=== PATIENT | female | born 1945 | race African-American/Black ===

== ENCOUNTER 2016-03-27 13:33 | Emergency (ER) | payer MEDICARE ==
--- NOTE | 2016-03-27 14:40 | PICIS ---
[facility] EMERGENCY RECORD TRIAGE (13:41 ASA) TRIAGE NOTES: c/o cough, congestion and fever x one week. (13:41 ASAH) PATIENT: NAME: Holly Faith, AGE: 70, GENDER: female, : Sat 1945, TIME OF GREET: Cassandra Mar 27, 2016 13:33, PREFERRED LANGUAGE: Hungarian, ETHNICITY: Not or , ECODE BILLING MAP: [facility], SSN: [id number], Zip Code: [address], KG WEIGHT: 88.45, PHONE: , , , PERSON ID: [id number], PAYMENT: X Medicare, PCP: DO BANEGAS KRISTEL. (13:41 ASAH) COMPLAINT: congestion. (13:41 ASAH) ADMISSION: URGENCY: 4 Non Urgent, ADMISSION SOURCE: Home, TRANSPORT: CAR, BED: ER -03. (13:41 ASAH) SIRS SCORING: Heart Rate 55-109 (0), Temp range 96.8-101.1 (0), respiratory rate 12-24 (0), Mental Status altered: no (0), Infection or Suspected Infection: No. (13:42 ASAH) TRIAGE SCREENING: Patient denies suicidal ideation, Patient denies presence of domestic violence. (13:42 ASAH) PROVIDERS: TRIAGE NURSE: Azucena Redman RN. (13:41 ASAH) VITAL SIGNS: BP 138/79, Pulse 83, Resp 18, Temp 98.4, (Oral), Pain 0, O2 Sat 96, Time 03/27/2016 13:40. (13:40 ASAH) PREVIOUS VISIT ALLERGIES: No Known Drug Allergies. (13:41 ASAH) No Known Drug Allergies. (13:42 ASAH) KNOWN ALLERGIES aspirin (Unconfirmed) No Known Allergies (Unconfirmed) No Known Drug Allergies CURRENT MEDICATIONS (13:42 ASAH) hydrochlorothiazide: TABLET : Strength - 25 mg : ORAL Patient Dose: 1 tab(s) Oral once a day. Medrol (Oscar): TABLET, DOSE PACK : Strength - 4 mg : ORAL Patient Dose: 1 tab(s) Oral once a day (in the morning).taper as directed once a day for 5 days. VITAL SIGNS (13:40 [facility]) VITAL SIGNS: BP: 138/79, Pulse: 83, Resp: 18, Temp: 98.4 (Oral), Pain: 0, O2 sat: 96, Time: 03/27/2016 13:40. NURSING ASSESSMENT: RESPIRATORY /CHEST (13:53 ASA) CONSTITUTIONAL: Patient arrives ambulatory, Gait steady, History obtained from patient, Patient appears comfortable, Patient cooperative, Patient alert, Oriented to person, place and time, Skin warm, Skin dry, Skin normal in color, Patient complains of congestion. RESPIRATORY/CHEST: Breath sounds clear, Respiratory assessment findings include respiratory effort easy, Respirations regular, &a-1R&a+25V*p+0X*b7205O*c202B*c15G*c2P*p-0X&a-25V&a+1R Name: Holly Faith : 1945 F70 MedRec: [id number] AcctNum: [id number] Prepared: [facility] Mar 27, 2016 17:13 by Interface Page 1 of 5 pMD [facility] EMERGENCY RECORD Conversing normally, Neck and chest exam findings include trachea midline, Chest expansion equal, Chest movement symmetrical, Associated with cough, non-productive. ENT: Nasal assessment findings include nose normal to inspection. SAFETY: Side rails up, Cart/Stretcher in lowest position, Call light within reach, Hospital ID band on. NURSING PROCEDURE: DISCHARGE NOTE (14:33 ASA) DISCHARGE: Patient discharged to home, ambulating without assistance, driving self, unaccompanied, Summary of Care printed/ provided, Discharge instructions given to patient, Simple or moderate discharge teaching performed, by azucenarn, Prescriptions given and instructions on side effects given, Name of prescription(s) given: zithromax, tessalon, Above person(s) verbalized understanding of discharge instructions and follow-up care. SAFETY: Side rails up, Cart/Stretcher in lowest position, Call light within reach, Hospital ID band on. NURSING PROCEDURE: ENT (13:53 ASA) PATIENT IDENTIFIER: Patient actively involved in identification process. ENT: ENT care indicated for specimen collection, Notes: nasal flu swab collected and sent to lab. SAFETY: Side rails up, Cart/Stretcher in lowest position, Call light within reach, Hospital ID band on. ORDER DETAILS Order Name: Influenza A&B Ag Screen, Status: Active, Time: 13:55 03/27/2016, User: VeliQ, - Ordered for: DO Melvin William, - Entered by: DO Melvin William - [facility] Mar 27, 2016 13:55, - Quantity: 1. HPI FLU-LIKE SYNDROME (13:51 [facility]) CHIEF COMPLAINT: Patient presents for evaluation of body aches, Patient presents for evaluation of fever, Patient presents for evaluation of upper respiratory infection. HISTORIAN: History provided by patient, STARTED 1 WK AGO NO FEVER CURRENTLY STILL CONGESTED SINUS PRESSURE. LOCATION: Symptoms are generalized. TIME COURSE: Gradual onset of symptoms, 1, weeks ago. ASSOCIATED WITH: Associated with cough, non-productive, No associated headache, No associated shortness of breath. EXACERBATED BY: Patient's condition exacerbated by nothing. RELIEVED BY: Patient's condition relieved by nothing. ROS (13:53 [facility]) CONSTITUTIONAL: Historian denies chills, denies fever. &a-1R&a+25V*p+0X*n0451Z*c202B*c15G*c2P*p-0X&a-25V&a+1R Name: Holly Faith : 1945 F70 MedRec: [id number] AcctNum: [id number] Prepared: [facility] Mar 27, 2016 17:13 by Interface Page 2 of 5 pMD [facility] EMERGENCY RECORD EYES: Historian denies eye pain, denies eye discharge. ENT: Historian denies otalgia, reports rhinorrhea, reports sinus pain. CARDIOVASCULAR: Historian denies chest pain, no radiation. RESPIRATORY: Historian reports cough, denies shortness of breath, denies sputum. GI: Historian denies abdominal pain, denies nausea, denies vomiting. GENITOURINARY FEMALE: Historian denies frequency, denies urgency. MUSCULOSKELETAL: Historian denies joint stiffness, denies joint swelling. SKIN: Historian denies skin changes, denies skin lesions. NEUROLOGIC: Historian denies focal weakness, denies mental status changes. PSYCHIATRIC: Historian denies alcohol abuse, denies anxiety, denies depression, denies drug abuse. PAST MEDICAL HISTORY (13:42 [facility]) MEDICAL HISTORY: Flu vaccine up to date, Tetanus not up to date, Pneumococcal vaccine not up to date, Flu vaccine up to date, Tetanus not up to date, Pneumococcal vaccine up to date, Past medical history includes history of hypertension, which has been treated, Patient is compliant. FEMALE SURGICAL HISTORY: COLON CYST, PARTIAL HYSTERECTOMY. PSYCHIATRIC HISTORY: Psychiatric history includes, anxiety. SOCIAL HISTORY: Patient denies alcohol use, Patient denies drug use, Patient currently uses tobacco, chews tobacco, daily. PHYSICAL EXAM (13:54 [facility]) CONSTITUTIONAL: Vital signs reviewed, Patient appears non toxic, Patient appears pain free, Patient alert and oriented to person, place and time. HEAD: Head exam included findings of head atraumatic, normocephalic. EYES: Extraocular muscles intact, Conjunctiva normal, Sclera normal. ENT: Ear exam normal, Nose exam included findings of, Pharynx exam normal, not injected, Sinus exam included findings of frontal sinuses with, tenderness bilaterally. NECK: Neck exam included findings of normal range of motion, Trachea midline. RESPIRATORY CHEST: Breath sounds clear, Chest exam included findings of chest movement symmetrical. CARDIOVASCULAR: Cardiovascular exam included findings of heart rate regular rate and rhythm, Heart sounds normal. ABDOMEN FEMALE: Abdominal exam included findings of abdomen nontender, Liver normal, Spleen normal. UPPER EXTREMITY: Upper extremity exam included findings of &a-1R&a+25V*p+0X*s0298E*c202B*c15G*c2P*p-0X&a-25V&a+1R Name: Holly Faith : 1945 F70 MedRec: [id number] AcctNum: [id number] Prepared: Cassandra Mar 27, 2016 17:13 by Interface Page 3 of 5 pMD [facility] EMERGENCY RECORD inspection normal, Range of motion normal, Motor strength normal. LOWER EXTREMITY: Lower extremity exam included findings of inspection normal, Range of motion normal, Motor strength normal. NEURO: [place] coma scale 15, Neuro exam findings include patient oriented to person, place and time, Speech normal, Gait normal. SKIN: Skin exam included findings of skin warm, dry, and normal in color. LYMPHATIC: Lymphatic exam normal. PSYCHIATRIC: Psychiatric exam included findings of patient oriented to person place and time, Normal affect, Judgment normal, Insight normal. LAB INTERPRETATION (14:27 [facility]) INTERPRETATION: Influenza negative. EVENTS TRANSFER: Triage to Emergency Emergency Room -03. (Cassandra Mar 27, 2016 13:41 ASAH) Removed from Emergency Emergency Room -03. (14:36 ASAH) PROBLEM LIST No recorded problems DIAGNOSIS (14:29 [facility]) FINAL: PRIMARY: ACUTE SINUSITIS UNSPECIFIED. DISPOSITION PATIENT: Disposition Type: Discharge, Disposition: *Discharge Home. (14:29 [facility]) Patient left the department. (14:36 ASA) INSTRUCTION (14:29 [facility]) DISCHARGE: SINUSITIS, ABX TX. FOLLOWUP: DO BANEGAS KRISTEL, [facility], [address] [place] [id number], [phone]. SPECIAL: Follow-up with your primary physician as needed. PRESCRIPTION (14:29 [facility]) Tessalon: CAPSULE : 200 mg : ORAL : Quantity: 1 Unit: tab(s) Route: ORAL Schedule: every 8 hours PRN Dispense: 21 Unit: tab(s) May substitute. Refills: No Refills . NOTES: No refills. Zithromax oral: CAPSULE : 250 mg : ORAL : Quantity: 1 Unit: tab(s) Route: ORAL Schedule: once a day (in the morning) Dispense: 6 Unit: tab(s) May substitute. Refills: No Refills . NOTES: ^s=No refills No refills. &a-1R&a+25V*p+0X*f2840I*c202B*c15G*c2P*p-0X&a-25V&a+1R Name: Marcell Holly Jeison : 1945 F70 MedRec: [id number] AcctNum: [id number] Prepared: ThuMar 27, 2016 17:13 by Interface Page 4 of 5 pMD [facility] EMERGENCY RECORD IMAGING (14:35 ASA) *DISCHARGE INSTRUCTIONS RECEIPT: Image captured from scanner. *SUPPLY CHARGE SHEET: Image captured from scanner. ADMIN DIGITAL SIGNATURE: VIRGINIA Redman, June. (14:34 ASA) DO Melvin William. (17:05 [facility]) Fernandez: ASA=VIR[place] Redman, June [facility]=DO Melvin William &a-1R&a+25V*p+0X*b7999F*c202B*c15G*c2P*p-0X&a-25V&a+1R Name: Holly Faith : 1945 F70 MedRec: [id number] AcctNum: [id number] Prepared: Cassandra Mar 27, 2016 17:13 by Interface Page 5 of 5 pMD MTDD
--- NOTE | 2016-03-27 14:40 | ERRECORD ---
[facility] EMERGENCY RECORD HPI FLU-LIKE SYNDROME (13:51 [facility]) CHIEF COMPLAINT: Patient presents for evaluation of body aches, Patient presents for evaluation of fever, Patient presents for evaluation of upper respiratory infection. HISTORIAN: History provided by patient, STARTED 1 WK AGO NO FEVER CURRENTLY STILL CONGESTED SINUS PRESSURE. LOCATION: Symptoms are generalized. TIME COURSE: Gradual onset of symptoms, 1, weeks ago. ASSOCIATED WITH: Associated with cough, non-productive, No associated headache, No associated shortness of breath. EXACERBATED BY: Patient's condition exacerbated by nothing. RELIEVED BY: Patient's condition relieved by nothing. ROS (13:53 [facility]) CONSTITUTIONAL: Historian denies chills, denies fever. EYES: Historian denies eye pain, denies eye discharge. ENT: Historian denies otalgia, reports rhinorrhea, reports sinus pain. CARDIOVASCULAR: Historian denies chest pain, no radiation. RESPIRATORY: Historian reports cough, denies shortness of breath, denies sputum. GI: Historian denies abdominal pain, denies nausea, denies vomiting. GENITOURINARY FEMALE: Historian denies frequency, denies urgency. MUSCULOSKELETAL: Historian denies joint stiffness, denies joint swelling. SKIN: Historian denies skin changes, denies skin lesions. NEUROLOGIC: Historian denies focal weakness, denies mental status changes. PSYCHIATRIC: Historian denies alcohol abuse, denies anxiety, denies depression, denies drug abuse. PAST MEDICAL HISTORY (13:42 ASA) MEDICAL HISTORY: Flu vaccine up to date, Tetanus not up to date, Pneumococcal vaccine not up to date, Flu vaccine up to date, Tetanus not up to date, Pneumococcal vaccine up to date, Past medical history includes history of hypertension, which has been treated, Patient is compliant. FEMALE SURGICAL HISTORY: COLON CYST, PARTIAL HYSTERECTOMY. PSYCHIATRIC HISTORY: Psychiatric history includes, anxiety. SOCIAL HISTORY: Patient denies alcohol use, Patient denies drug use, Patient currently uses tobacco, chews tobacco, daily. KNOWN ALLERGIES aspirin (Unconfirmed) No Known Allergies (Unconfirmed) No Known Drug Allergies &a-1R&a+25V*p+0X*k0848I*c202B*c15G*c2P*p-0X&a-25V&a+1R Name: Holly Faith : 1945 F70 MedRec: [id number] AcctNum: [id number] Prepared: Cassandra Mar 27, 2016 17:07 by Interface Page [address] [facility] EMERGENCY RECORD CURRENT MEDICATIONS (13:42 ASAH) hydrochlorothiazide: TABLET : Strength - 25 mg : ORAL Patient Dose: 1 tab(s) Oral once a day. Medrol (Oscar): TABLET, DOSE PACK : Strength - 4 mg : ORAL Patient Dose: 1 tab(s) Oral once a day (in the morning).taper as directed once a day for 5 days. VITAL SIGNS (13:40 ASAH) VITAL SIGNS: BP: 138/79, Pulse: 83, Resp: 18, Temp: 98.4 (Oral), Pain: 0, O2 sat: 96, Time: 03/27/2016 13:40. PHYSICAL EXAM (13:54 [facility]) CONSTITUTIONAL: Vital signs reviewed, Patient appears non toxic, Patient appears pain free, Patient alert and oriented to person, place and time. HEAD: Head exam included findings of head atraumatic, normocephalic. EYES: Extraocular muscles intact, Conjunctiva normal, Sclera normal. ENT: Ear exam normal, Nose exam included findings of, Pharynx exam normal, not injected, Sinus exam included findings of frontal sinuses with, tenderness bilaterally. NECK: Neck exam included findings of normal range of motion, Trachea midline. RESPIRATORY CHEST: Breath sounds clear, Chest exam included findings of chest movement symmetrical. CARDIOVASCULAR: Cardiovascular exam included findings of heart rate regular rate and rhythm, Heart sounds normal. ABDOMEN FEMALE: Abdominal exam included findings of abdomen nontender, Liver normal, Spleen normal. UPPER EXTREMITY: Upper extremity exam included findings of inspection normal, Range of motion normal, Motor strength normal. LOWER EXTREMITY: Lower extremity exam included findings of inspection normal, Range of motion normal, Motor strength normal. NEURO: [place] coma scale 15, Neuro exam findings include patient oriented to person, place and time, Speech normal, Gait normal. SKIN: Skin exam included findings of skin warm, dry, and normal in color. LYMPHATIC: Lymphatic exam normal. PSYCHIATRIC: Psychiatric exam included findings of patient oriented to person place and time, Normal affect, Judgment normal, Insight normal. PROBLEM LIST No recorded problems DIAGNOSIS (14:29 [facility]) &a-1R&a+25V*p+0X*b0447X*c202B*c15G*c2P*p-0X&a-25V&a+1R Name: Holly Faith : 1945 F70 MedRec: [id number] AcctNum: [id number] Prepared: ThuMar 27, 2016 17:07 by Interface Page [address] [facility] EMERGENCY RECORD FINAL: PRIMARY: ACUTE SINUSITIS UNSPECIFIED. PRESCRIPTION (14:29 [facility]) Tessalon: CAPSULE : 200 mg : ORAL : Quantity: 1 Unit: tab(s) Route: ORAL Schedule: every 8 hours PRN Dispense: 21 Unit: tab(s) May substitute. Refills: No Refills . NOTES: No refills. Zithromax oral: CAPSULE : 250 mg : ORAL : Quantity: 1 Unit: tab(s) Route: ORAL Schedule: once a day (in the morning) Dispense: 6 Unit: tab(s) May substitute. Refills: No Refills . NOTES: ^s=No refills No refills. DISPOSITION PATIENT: Disposition Type: Discharge, Disposition: *Discharge Home. (14:29 [facility]) Patient left the department. (14:36 [facility]) Fernandez: BALA=VIRGINIA Redman, June WMEI=DO Melvin William &a-1R&a+25V*p+0X*m4744Y*c202B*c15G*c2P*p-0X&a-25V&a+1R Name: Holly Faith : 1945 F70 MedRec: [id number] AcctNum: [id number] Prepared: ThuMar 27, 2016 17:07 by Interface Page 3 of 3 pMD MTDD
== END 2016-03-27 14:32 | disposition home or self-care (01) ==
LOC: BURERS 13:33
DX: J01.90 Acute sinusitis, unspecified (principal); F41.9 Anxiety disorder, unspecified; F17.220 Nicotine dependence, chewing tobacco, uncomplicated
CPT/HCPCS: 99283

== ENCOUNTER 2016-08-04 09:45 | Emergency (ER) | payer MEDICARE | END 2016-08-04 10:12 | disposition home or self-care (01) | LOC: BURERS 09:45 | DX: S29.012A Strain of muscle and tendon of back wall of thorax, initial encounter (principal); I10 Essential (primary) hypertension; F17.220 Nicotine dependence, chewing tobacco, uncomplicated; Z79.891 Long term (current) use of opiate analgesic; Z79.899 Other long term (current) drug therapy; X50.9XXA Other and unspecified overexertion or strenuous movements or postures, initial encounter | CPT/HCPCS: 99283 ==

== ENCOUNTER 2016-12-04 08:20 | Emergency (ER) | payer MEDICARE | END 2016-12-04 09:00 | disposition home or self-care (01) | LOC: BURERS 08:20 | DX: M25.562 Pain in left knee (principal); G89.29 Other chronic pain; I10 Essential (primary) hypertension; F17.220 Nicotine dependence, chewing tobacco, uncomplicated | CPT/HCPCS: 99283 ==

== ENCOUNTER 2017-03-16 14:17 | Emergency (ER) | payer MEDICARE | END 2017-03-16 15:16 | disposition home or self-care (01) | LOC: BURERS 14:17 | DX: Z43.3 Encounter for attention to colostomy (principal); T81.32XD Disruption of internal operation (surgical) wound, not elsewhere classified, subsequent encounter; I10 Essential (primary) hypertension; F17.220 Nicotine dependence, chewing tobacco, uncomplicated; Z79.899 Other long term (current) drug therapy | CPT/HCPCS: 99282 ==

== ENCOUNTER 2017-03-29 05:03 | Emergency (ER) | payer MEDICARE ==
[2017-03-29 05:34] LABS: Bilirubin Negative (Negative); Blood, Urine Trace (Negative); Clarity Clear (Clear); Glucose, Urine (Dipstick) Negative (Negative); Leukocyte Trace (Negative); Nitrite Negative (Negative); Protein, Urine (Dipstick) Negative (Neg-Trace); Specific Gravity, Urine 1.015 (1.005-1.030); Urobilinogen 0.2 mg/dL (0.2-1.0); pH, Urine 7.5 (5.0-9.0)
[2017-03-29 05:36] LABS: Bacteria/HPF Rare-Few HPF (None Seen); RBC/HPF 0-3 HPF (0-3); Squamous Epithelial 0-3 HPF (0-3); WBC/HPF 0-3 HPF (0-3); Yeast-All Forms 1+ HPF (None Seen)
[2017-03-29] MEDS ORDERED: Ondansetron HCl/PF 4 MG/2 ML Vial ONE (05:59)
[2017-03-29] MEDS ORDERED: Fentanyl 100 MCG/2 ML VIAL ONE ×2 (05:59→07:58)
[2017-03-29 06:19] LABS: ALT (SGPT) 9 U/L (8-55); AST (SGOT) 15 U/L (5-34); Albumin 3.3 g/dL (3.4-4.8); Alkaline Phosphatase 39 U/L (40-150); Anion Gap 15 mmol/L (10-20); BUN (Urea Nitrogen) 4 mg/dL (9.8-20.1); Bilirubin, Total 0.3 mg/dL (0.2-1.2); Calc. Creatinine Clearance 0 mL/min (70-130); Calcium 8.9 mg/dL (7.8-10.44); Carbon Dioxide 25 mmol/L (23-31); Chloride 103 mmol/L (98-107); Estimated GFR-MDRD Greater than 90; Globulin 4.1 g/dL (2.4-3.5); Glucose 118 mg/dL (83-110); Lipase 7 U/L (8-78); Potassium 3.4 mmol/L (3.5-5.1); Protein, Total 7.4 g/dL (6.0-8.3); Sodium 140 mmol/L (136-145)
[2017-03-29 06:22] LABS: #Basophils 0.1 thou/uL (0.0-0.2); #Eosinphils 0.1 thou/uL (0.0-0.7); #Lymphocytes 1.8 thou/uL (1.20-3.40); #Monocytes 0.6 thou/uL (0.11-0.59); #Neutrophils 5.2 thou/uL (1.40-6.50); %Basophils 1.3 % (0.0-1.0); %Eosinophils 0.7 % (0.0-10.0); %Lymphocytes 23.1 % (21.0-51.0); %Monocytes 7.2 % (0.0-10.0); %Neutrophils 67.7 % (42.0-75.0); Hemoglobin 10.3 g/dL (12.0-16.0); Lymphocytes 22 % (21-51); MDiff Complete? YES; Mean Corpuscular HGB CONC 32.2 g/dL (32.0-36.0); Mean Corpuscular Hemoglobin 26.9 pg (27.0-31.0); Mean Corpuscular Volume 83.7 fl (81.0-99.0); Mean Platelet Volume 5.6 fL (7.4-10.4); Monocytes 11 % (0-10); Neutrophil 67 % (42-75); PLT Morphology Comment Appears Adequate; Platelet Count 383 thou/uL (130-400); RBC Distribution Width 12.9 % (11.5-14.5); RBC Morphology Normal; Red Blood Cell (RBC) Count 3.84 mill/uL (4.20-5.40); Small Platelets SLIGHT; White Blood Cell (WBC) Count 7.7 thou/uL (4.8-10.8)
[2017-03-29] MEDS ORDERED: Dicyclomine 20 MG TAB ONE (07:58)
--- NOTE | 2017-03-29 13:38 | CT ---
PRELIMINARY REPORT/[facility]/EMERGENCY AFTER HOURS PROCEDURE: EXAM: CT Abdomen and Pelvis With Intravenous Contrast CLINICAL HISTORY: 71 years female; Pain; Abdominal pain; Flank; Left lower quadrant (llq); Prior surgery; Surgery date: <1 month; Surgery type: Sbo SX with colostomy TECHNIQUE: Axial computed tomography images of the abdomen and pelvis with intravenous contrast. Coronal reformatted images were created and reviewed. COMPARISON: No relevant prior studies available. FINDINGS: Lower thorax: Scarring or subsegmental atelectasis both lung bases. ABDOMEN: Liver: Unremarkable. No mass. Gallbladder and bile ducts: Unremarkable. No calcified stones. No ductal dilation. Pancreas: Unremarkable. No mass. No ductal dilation. Spleen: Unremarkable. No splenomegaly. Adrenals: Unremarkable. No mass. Kidneys and ureters: Multiple right renal cortical cysts include a dominant partially calcified super ior pole cyst. Mild to moderate left hydronephrosis and left hydroureter. No discrete obstructing ur inary calculus bilaterally. Mild left perinephric and left periureteral stranding. Stomach and bowel: Left lower quadrant colostomy. Gas and stool noted in the colon. Nonobstructive small bowel pattern. No mucosal thickening. Appendix: No findings to suggest acute appendicitis. PELVIS: Bladder: Unremarkable. No mass. Reproductive: Unremarkable as visualized. Subperitoneal space: Ill-defined presacral and perirectal soft tissue thickening. ABDOMEN and PELVIS: Intraperitoneal space: Trace pelvic free fluid. No free air. Bones/joints: Degenerative change of the lumbar spine. No acute fracture. No dislocation. Soft tissues: Multiple ventral periumbilical hernias, largest is fluid-filled measuring 4.8 x 2.9 cm transverse. Mild generalized abdominal and pelvic body wall edema. Vasculature: Aortic atherosclerosis. No abdominal aortic aneurysm. Lymph nodes: Unremarkable. No enlarged lymph nodes. IMPRESSION: Mild to moderate left obstructive uropathy. Etiology uncertain. Distal left ureteral stricture not ex cluded. Additionally there may be superimposed left-sided pyelonephritis. Ill-defined presacral and perirectal soft tissue thickening. This is indeterminate for post treatment effect versus residual or recurrent tumor, if there is history of colorectal carcinoma. Followup can be performed with PET CT scan as directed clinically. Uncomplicated appearing ventral hernias. Left lower quadrant colostomy without overt small bowel obstruction. Mild generalized abdominal and pelvic body wall edema. Thank you for allowing us to participate in the care of your patient. Dictated and Authenticated by: Alphonso Wright MD 03/29/2017 7:34 AM Central Time ([place] & [place]) FINAL REPORT CT ABDOMEN AND PELVIS WITH CONTRAST: Date: 03/29/[address] of the abdomen and pelvis was performed for evaluation of pain. The patient is recently pos t colostomy. Axial slices were acquired without giving any oral contrast. IV contrast was used. FINDINGS: There is some scarring or linear atelectasis in the left lung base. Otherwise, the lungs are relative ly clear. Some coronary artery calcifications are suggested. The liver, spleen, pancreas, and adrenal glands are unremarkable. There are probably a few tiny stone s in the gallbladder. The aorta is calcified but not dilated. There is moderate left hydronephrosis and hydroureter down to at least the pelvic level. The cause fo r this obstruction is not apparent. I cannot see any definite ureteral calculi. The right kidney has several calcifications within it. There may be a calcified node outside of it. There is no obstructio n on this side. The patient's left lower quadrant colostomy is noted. There is generalized edema or swelling in the a nterior body wall of this patient. A trace of free fluid is seen internally, but no large amount. The bowel is nondistended. There is no evidence of bowel obstruction. CT of the pelvis shows some poorly defined streaking in the presacral and perirectal regions. The sig nificance is unknown. No pelvic masses are seen. Also, incidentally noted on the study, are several small periumbilical hernias, which are fluid-fille d, but do not contain any obvious bowel within them. IMPRESSION: 1. Left hydronephrosis and hydroureter down to at least the pelvic level. The cause for the obstruct ion is not apparent on this study. Urological referral recommended. 2. Areas of swelling or edema in the anterior abdominal wall fat presumably related to the recent co lostomy. 3. Ill-defined streaking in the presacral/perirectal fat that may be related to recent surgery. 4. Right renal calcifications. 5. Tiny gallstones. Report in agreement with preliminary reading by Nadir. POS: HOME
== END 2017-03-29 08:40 | disposition home or self-care (01) ==
LOC: BURERS 05:03
DX: N13.30 Unspecified hydronephrosis (principal); D64.9 Anemia, unspecified; I10 Essential (primary) hypertension; F17.220 Nicotine dependence, chewing tobacco, uncomplicated; Z79.899 Other long term (current) drug therapy
CPT/HCPCS: 74177; 80053; 81003; 81015; 83690; 85025; 87086; 96361; 96374; 96375; 96376; J2405; J3010

== ENCOUNTER 2018-08-21 17:12 | Emergency (ER) | payer MEDICARE, MEDICAID, OTHER ==
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
== END 2018-08-21 18:35 | disposition home or self-care (01) ==
LOC: BURERS 17:12
DX: S80.01XA Contusion of right knee, initial encounter (principal); S80.02XA Contusion of left knee, initial encounter; F17.220 Nicotine dependence, chewing tobacco, uncomplicated; V43.52XA Car driver injured in collision with other type car in traffic accident, initial encounter

== ENCOUNTER 2018-10-11 10:27 | Emergency (ER) | payer MEDICARE, MEDICAID | END 2018-10-11 11:55 | disposition home or self-care (01) | LOC: BURERS 10:27 | DX: B00.1 Herpesviral vesicular dermatitis (principal); K21.9 Gastro-esophageal reflux disease without esophagitis; E78.5 Hyperlipidemia, unspecified; I10 Essential (primary) hypertension; Z87.891 Personal history of nicotine dependence; Z79.899 Other long term (current) drug therapy | CPT/HCPCS: 36416; 87529; 99283 ==

== ENCOUNTER 2019-01-03 14:38 | Emergency (ER) | payer MEDICARE, MEDICAID | END 2019-01-03 15:15 | disposition home or self-care (01) | LOC: BURERS 14:38 | DX: L30.9 Dermatitis, unspecified (principal); K21.9 Gastro-esophageal reflux disease without esophagitis; E78.5 Hyperlipidemia, unspecified; I10 Essential (primary) hypertension; F17.220 Nicotine dependence, chewing tobacco, uncomplicated; Z79.891 Long term (current) use of opiate analgesic; Z79.899 Other long term (current) drug therapy | CPT/HCPCS: 99282 ==

== ENCOUNTER 2019-04-30 11:26 | Emergency (ER) | payer MEDICARE, MEDICAID ==
[2019-04-30] MEDS ORDERED: Sulfameth/Trimethoprim DS 800-160mg TAB ONE (11:48)
[2019-04-30] MEDS ORDERED: Phenazopyridine HCl 97.5 MG TABLET ONE (11:48)
[2019-04-30 11:54] LABS: Bilirubin Negative (Negative); Blood, Urine Large (Negative); Clarity Turbid (Clear); Glucose, Urine (Dipstick) Negative (Negative); Leukocyte Large (Negative); Nitrite Negative (Negative); Protein, Urine (Dipstick) 100 mg/dL (Neg-Trace); Urobilinogen 0.2 mg/dL (Less than 2)
[2019-04-30 11:56] LABS: Bacteria/HPF 2+ HPF (None Seen); Squamous Epithelial 0-3 HPF (0-3); WBC/HPF Greater Than 50 HPF (0-3); Yeast-Budding 1+ HPF (None Seen); Yeast-Hyphae 1+ HPF (None Seen)
== END 2019-04-30 11:50 | disposition home or self-care (01) ==
LOC: BURERS 11:26
DX: N39.0 Urinary tract infection, site not specified (principal); K21.9 Gastro-esophageal reflux disease without esophagitis; E78.5 Hyperlipidemia, unspecified; I10 Essential (primary) hypertension; F17.210 Nicotine dependence, cigarettes, uncomplicated; Z79.899 Other long term (current) drug therapy
CPT/HCPCS: 81003; 81015; 87086; 99283

== ENCOUNTER 2019-07-18 10:09 | Outpatient (CLI) | payer MEDICARE, MEDICAID ==
--- NOTE | 2019-07-18 15:11 | RAD ---
LEFT KNEE THREE VIEWS: Date: 07-18-2019 Comparison: 08-21-18 FINDINGS: Severe osteoarthritis of the medial compartment is again noted, consisting of medial joint space narr owing, large osteophytes and slight sclerosis. There really has been little change in the interval. N o large effusions are seen. No fractures are present. IMPRESSION: Severe osteoarthritis, medial compartment. POS: HOME
--- NOTE | 2019-07-18 15:24 | RAD ---
RIGHT KNEE THREE VIEWS: Date: 07-18-2019 Comparison: 08-21-18 FINDINGS: Moderately severe osteoarthritis of the medial compartment is present consisting of medial joint spac e narrowing and osteophytes. While significant, the degree of osteoarthritis is not quite as bad as t he left knee. Some osteophytes seem slightly larger today than before. There is no joint fluid or sig n of fracture. IMPRESSION: Medial compartment osteoarthritis of at least a moderate degree. POS: HOME
== END 2019-07-18 10:10 | disposition home or self-care (01) ==
LOC: BURRAD 10:09
PROVIDERS: ATTEND Registered Nurse Community Health
DX: M17.0 Bilateral primary osteoarthritis of knee (principal)

== ENCOUNTER → 2019-10-07 | Emergency (ER) | payer MEDICARE, MEDICAID ==
[~2019-10-07] MED LIST: Ketorolac Tromethamine 30 MG/ML VIAL ONE
== END ==
LOC: BURERS 12:18
DX: M17.12 Unilateral primary osteoarthritis, left knee (principal); K21.9 Gastro-esophageal reflux disease without esophagitis; E78.5 Hyperlipidemia, unspecified; I10 Essential (primary) hypertension; F17.220 Nicotine dependence, chewing tobacco, uncomplicated; Z79.899 Other long term (current) drug therapy
CPT/HCPCS: 96372; 99283; J1885

== ENCOUNTER 2020-05-20 10:04 | Emergency (ER) | payer MEDICARE, MEDICAID ==
[2020-05-20 10:30] LABS: Bilirubin Negative (Negative); Blood, Urine Trace (Negative); Clarity Slightly Cloudy (Clear); Glucose, Urine (Dipstick) Negative (Negative); Ketone, Urine Negative (Negative); Leukocyte Moderate (Negative); Nitrite Negative (Negative); Protein, Urine (Dipstick) Negative (Neg-Trace); Urobilinogen 0.2 mg/dL (Less than 2); pH, Urine 5.5 (5.0-9.0)
[2020-05-20] MEDS ORDERED: Ketorolac Tromethamine 30 MG/ML VIAL ONE (10:40)
[2020-05-20 11:17] LABS: Bacteria/HPF Rare-Few HPF (None Seen); RBC/HPF 0-3 HPF (0-3); Squamous Epithelial 0-3 HPF (0-3); WBC/HPF Greater than 50 HPF (0-3); Yeast-Budding Rare HPF (None Seen)
[2020-05-20 11:18] LABS: Calcium Oxalate Crystals Rare HPF (None Seen)
[2020-05-20 11:28] LABS: #Basophils 0.1 thou/uL (0.0-0.2); #Eosinphils 0.2 thou/uL (0.0-0.7); #Lymphocytes 2.1 thou/uL (1.20-3.40); #Monocytes 0.5 thou/uL (0.11-0.59); #Neutrophils 3.1 thou/uL (1.40-6.50); %Basophils 1.8 % (0.0-1.0); %Eosinophils 3.4 % (0.0-10.0); %Lymphocytes 35.6 % (21.0-51.0); %Monocytes 8.1 % (0.0-10.0); %Neutrophils 51.1 % (42.0-75.0); Hemoglobin 11.7 g/dL (12.0-16.0); Mean Corpuscular HGB CONC 32.4 g/dL (32.0-36.0); Mean Corpuscular Hemoglobin 28.7 pg (27.0-31.0); Mean Corpuscular Volume 88.4 fL (78.0-98.0); Mean Platelet Volume 8.2 fL (7.4-10.4); Platelet Count 233 thou/uL (130-400); RBC Distribution Width 12.3 % (11.5-14.5); Red Blood Cell (RBC) Count 4.09 mill/uL (4.20-5.40)
[2020-05-20 11:42] LABS: ALT (SGPT) 11 U/L (8-55); AST (SGOT) 13 U/L (5-34); Albumin 3.7 g/dL (3.4-4.8); Alkaline Phosphatase 48 U/L (40-110); Anion Gap 14 mmol/L (10-20); BUN (Urea Nitrogen) 13 mg/dL (9.8-20.1); Bilirubin, Total 0.3 mg/dL (0.2-1.2); Calc. Creatinine Clearance 0 mL/min (70-130); Calcium 8.9 mg/dL (7.8-10.44); Carbon Dioxide 27 mmol/L (23-31); Chloride 100 mmol/L (98-107); Globulin 3.9 g/dL (2.4-3.5); Glucose 96 mg/dL (83-110); Lipase 10 U/L (8-78); Potassium 3.2 mmol/L (3.5-5.1); Protein, Total 7.6 g/dL (5.8-8.1); Sodium 138 mmol/L (136-145)
[2020-05-20] MEDS ORDERED: Sterile Water 10 ML ONE (12:07)
[2020-05-20] MEDS ORDERED: cefTRIAXone\\ROCEPHIN 1 GM VIAL ONE (12:07)
== END 2020-05-20 12:40 | disposition home or self-care (01) ==
LOC: BURERS 10:04
DX: N39.0 Urinary tract infection, site not specified (principal); K80.50 Calculus of bile duct without cholangitis or cholecystitis without obstruction; Z79.899 Other long term (current) drug therapy; Z79.891 Long term (current) use of opiate analgesic; K21.9 Gastro-esophageal reflux disease without esophagitis; E78.5 Hyperlipidemia, unspecified; I10 Essential (primary) hypertension; F17.220 Nicotine dependence, chewing tobacco, uncomplicated
CPT/HCPCS: 36415; 74176; 80053; 81003; 81015; 83690; 85025; 87086; 96372; J0696; J1885

== ENCOUNTER 2023-09-08 15:42 | Emergency (ER) | payer OTHER ==
[2023-09-08] MEDS ORDERED: predniSONE 20 MG TAB ONE (16:25)
== END 2023-09-08 16:30 | disposition home or self-care (01) ==
LOC: BURERS 15:42
DX: T78.40XA Allergy, unspecified, initial encounter (principal); R22.0 Localized swelling, mass and lump, head
CPT/HCPCS: 99283; J7512

== ENCOUNTER 2024-01-11 19:39 | Emergency (ER) | payer OTHER, MEDICAID ==
[~2024-01-11 19:39] MED LIST changes: +Iopamidol 370 76% 100 ML VIAL ONE; -Ketorolac Tromethamine 30 MG/ML VIAL ONE
[2024-01-11 20:48] LABS: #Basophils 0.1 thou/uL (0.0-0.2); #Eosinophils 0.1 thou/uL (0.0-0.7); #Lymphocytes 2.1 thou/uL (1.20-3.40); #Monocytes 0.6 thou/uL (0.11-0.59); #Neutrophils 4.8 thou/uL (1.40-6.50); %Basophils 1.5 % (0.0-1.0); %Eosinophils 0.9 % (0.0-10.0); %Lymphocytes 27.2 % (21.0-51.0); %Monocytes 7.6 % (0.0-10.0); %Neutrophils 62.8 % (42.0-75.0); Hematocrit 32.5 % (36.0-47.0); Hemoglobin 10.1 g/dL (12.0-16.0); Mean Corpuscular HGB CONC 31.1 g/dL (32.0-36.0); Mean Corpuscular Hemoglobin 27.6 pg (27.0-31.0); Mean Corpuscular Volume 88.6 fl (78.0-98.0); Mean Platelet Volume 7.4 fL (7.4-10.4); Platelet Count 319 10x3/uL (130-400); RBC Distribution Width 11.3 % (11.5-14.5); Red Blood Cell (RBC) Count 3.66 mill/uL (4.20-5.40); White Blood Cell (WBC) Count 7.6 10x3/uL (4.8-10.8)
[2024-01-11 20:49] LABS: Bilirubin Negative (Negative); Blood, Urine Trace (Negative); Clarity Slightly Cloudy (Clear); Glucose, Urine (Dipstick) Negative (Negative); Ketone, Urine Negative (Negative); Leukocyte Large (Negative); Nitrite Negative (Negative); Protein, Urine (Dipstick) Negative (Neg-Trace); Urobilinogen 0.2 mg/dL (Less than 2); pH, Urine 6.5 (5.0-9.0)
[2024-01-11 21:04] LABS: Bacteria/HPF 2+ HPF (None Seen); CAUTI Indications for Culture Alt mental st,lethar; RBC/HPF 0-3 HPF (0-3); WBC/HPF 21-50 HPF (0-3)
[2024-01-11] MEDS ORDERED: fentaNYL 50 mcg/mL 1 mL Vial ONE (21:05)
[2024-01-11 21:06] LABS: Urine Culture Reflex Yes Yes
[2024-01-11 21:18] LABS: ALT (SGPT) 9 U/L (8-55); AST (SGOT) 13 U/L (5-34); Alkaline Phosphatase 39 U/L (40-110); Anion Gap 15 mmol/L (10-20); BUN (Urea Nitrogen) 13 mg/dL (9.8-20.1); Bilirubin, Total 0.4 mg/dL (0.2-1.2); Calc. Creatinine Clearance 0 mL/min (70-130); Calcium 8.7 mg/dL (7.8-10.44); Carbon Dioxide 27 mmol/L (23-31); Chloride 97 mmol/L (98-107); Estimated GFR 55; Globulin 3.8 g/dL (2.4-3.5); Glucose 114 mg/dL (83-110); Potassium 2.8 mmol/L (3.5-5.1); Protein, Total 6.8 g/dL (5.8-8.1); Sodium 136 mmol/L (136-145)
[2024-01-11] MEDS ORDERED: Potassium Chloride 20 MEQ TAB ONE (21:41)
[2024-01-11] MEDS ORDERED: Ciprofloxacin 500 MG TAB ONE (22:09)
== END 2024-01-11 22:30 | disposition home or self-care (01) ==
LOC: BURERS 19:39
DX: N39.0 Urinary tract infection, site not specified (principal); K43.9 Ventral hernia without obstruction or gangrene; E87.6 Hypokalemia; I10 Essential (primary) hypertension; Z79.899 Other long term (current) drug therapy
CPT/HCPCS: 74177; 80053; 81001; 85025; 87086; J3010; Q9967; 36415; 96374

== ENCOUNTER 2024-01-21 04:03 | Emergency (ER) | payer OTHER ==
[2024-01-21 04:59] LABS: #Basophils 0.1 thou/uL (0.0-0.2); #Eosinophils 0.1 thou/uL (0.0-0.7); #Lymphocytes 1.8 thou/uL (1.20-3.40); #Monocytes 0.7 thou/uL (0.11-0.59); #Neutrophils 6.1 thou/uL (1.40-6.50); %Basophils 0.6 % (0.0-1.0); %Eosinophils 1.4 % (0.0-10.0); %Lymphocytes 20.5 % (21.0-51.0); %Monocytes 7.9 % (0.0-10.0); %Neutrophils 69.6 % (42.0-75.0); Hematocrit 33.5 % (36.0-47.0); Hemoglobin 10.7 g/dL (12.0-16.0); Mean Corpuscular HGB CONC 31.9 g/dL (32.0-36.0); Mean Corpuscular Hemoglobin 27.4 pg (27.0-31.0); Mean Corpuscular Volume 86.1 fl (78.0-98.0); Mean Platelet Volume 6.8 fL (7.4-10.4); Platelet Count 377 10x3/uL (130-400); RBC Distribution Width 11.1 % (11.5-14.5); Red Blood Cell (RBC) Count 3.89 mill/uL (4.20-5.40); White Blood Cell (WBC) Count 8.7 10x3/uL (4.8-10.8)
[2024-01-21 05:14] LABS: ALT (SGPT) 10 U/L (8-55); AST (SGOT) 13 U/L (5-34); Albumin 3.4 g/dL (3.4-4.8); Alkaline Phosphatase 44 U/L (40-110); Anion Gap 16 mmol/L (10-20); BUN (Urea Nitrogen) 12 mg/dL (9.8-20.1); Bilirubin, Total 0.4 mg/dL (0.2-1.2); Calc. Creatinine Clearance 0 mL/min (70-130); Calcium 9.5 mg/dL (7.8-10.44); Carbon Dioxide 25 mmol/L (23-31); Chloride 98 mmol/L (98-107); Estimated GFR 43; Globulin 4.7 g/dL (2.4-3.5); Glucose 102 mg/dL (83-110); Potassium 3.3 mmol/L (3.5-5.1); Protein, Total 8.1 g/dL (5.8-8.1); Sodium 136 mmol/L (136-145)
[2024-01-21] MEDS ORDERED: Lidocaine 1% PF 5 ML VIAL ONE (05:46)
[2024-01-21] MEDS ORDERED: cefTRIAXone (ROCEPHIN) 1 GM VIAL ONE (05:46)
[2024-01-21 06:10] LABS: MONO NEGATIVE CONTROL ZONE White (Negative) (White); MONO POSITIVE CONTROL Pink Line (Positive) (PINK/RED); Mononucleosis NEGATIVE (NEGATIVE)
== END 2024-01-21 06:20 | disposition home or self-care (01) ==
LOC: BURERS 04:03
DX: J02.9 Acute pharyngitis, unspecified (principal); K04.7 Periapical abscess without sinus
CPT/HCPCS: 80053; 85025; 86308; 87081; 87430; 96372; 99283; J0696; 36415

== ENCOUNTER 2024-01-23 07:53 | Emergency (ER) | payer OTHER ==
[2024-01-23] MEDS ORDERED: fentaNYL 50 mcg/mL 1 mL Vial ONE (08:38)
[2024-01-23 08:40] LABS: #Basophils 0.1 thou/uL (0.0-0.2); #Eosinophils 0.1 thou/uL (0.0-0.7); #Monocytes 0.8 thou/uL (0.11-0.59); #Neutrophils 8.6 thou/uL (1.40-6.50); %Eosinophils 0.6 % (0.0-10.0); %Lymphocytes 17.2 % (21.0-51.0); %Neutrophils 74.3 % (42.0-75.0); Hematocrit 33.7 % (36.0-47.0); Hemoglobin 10.5 g/dL (12.0-16.0); Mean Corpuscular HGB CONC 31.2 g/dL (32.0-36.0); Mean Corpuscular Hemoglobin 26.7 pg (27.0-31.0); Mean Corpuscular Volume 85.5 fl (78.0-98.0); Mean Platelet Volume 7.2 fL (7.4-10.4); Platelet Count 385 10x3/uL (130-400); Red Blood Cell (RBC) Count 3.94 mill/uL (4.20-5.40); White Blood Cell (WBC) Count 11.5 10x3/uL (4.8-10.8)
[2024-01-23] MEDS ORDERED: methylPREDNISolone Sod Succ/PF 125 MG/2 ML VIAL ONE (08:43)
[2024-01-23 09:14] LABS: ALT (SGPT) 12 U/L (8-55); AST (SGOT) 12 U/L (5-34); Albumin 3.2 g/dL (3.4-4.8); Alkaline Phosphatase 40 U/L (40-110); Anion Gap 16 mmol/L (10-20); BUN (Urea Nitrogen) 14 mg/dL (9.8-20.1); Bilirubin, Total 0.4 mg/dL (0.2-1.2); Calc. Creatinine Clearance 0 mL/min (70-130); Calcium 9.3 mg/dL (7.8-10.44); Carbon Dioxide 24 mmol/L (23-31); Estimated GFR 49; Globulin 4.8 g/dL (2.4-3.5); Glucose 93 mg/dL (83-110)
[2024-01-23 09:20] LABS: Chloride 99 mmol/L (98-107); Potassium 3.2 mmol/L (3.5-5.1); Sodium 136 mmol/L (136-145)
[2024-01-23] MEDS ORDERED: Ketorolac Tromethamine 30 MG (1 mL) VIAL ONE (09:21)
[2024-01-23] MEDS ORDERED: Ampicillin/Sulbactam 3 GM VIAL ONE (09:28)
[2024-01-23] MEDS ORDERED: Sodium Chloride 0.9% 100 ML ONE (09:28)
[2024-01-23] MEDS ORDERED: HYDROcodone/Acetaminophen 5/325 mg Tablet ONE (10:07)
[2024-01-23] MEDS ORDERED: Iopamidol 370 76% 100 ML VIAL ONE (13:29)
== END 2024-01-23 11:11 | disposition home or self-care (01) ==
LOC: BURERS 07:53
DX: K11.5 Sialolithiasis (principal); I10 Essential (primary) hypertension
CPT/HCPCS: 36415; 70491; 80053; 85025; 96374; 96375; J0295; J1885; J2919; J3010; Q9967

== ENCOUNTER 2025-01-10 18:15 | Emergency (ER) | payer OTHER, MEDICAID | END 2025-01-10 22:22 | disposition home or self-care (01) | LOC: BURERS 18:15 | DX: S29.012A Strain of muscle and tendon of back wall of thorax, initial encounter (principal); I10 Essential (primary) hypertension; X50.0XXA Overexertion from strenuous movement or load, initial encounter; Y93.89 Activity, other specified | CPT/HCPCS: 20552 ==